=== PATIENT | female | born 1990 | race Caucasian/White ===

== ENCOUNTER 2016-07-24 19:26 | Emergency (ER) | payer MEDICAID ==
[2016-07-24 19:34] VITALS: BP 138/70
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
== END 2016-07-24 19:52 | disposition home or self-care (01) ==
LOC: FB.ED 19:26
DX: S93.602A Unspecified sprain of left foot, initial encounter (principal); F17.210 Nicotine dependence, cigarettes, uncomplicated; W19.XXXA Unspecified fall, initial encounter; Y92.009 Unspecified place in unspecified non-institutional (private) residence as the place of occurrence of the external cause
CPT/HCPCS: 99283

== ENCOUNTER 2016-12-22 14:06 | Emergency (ER) | payer MEDICAID ==
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
[2016-12-22 14:24] VITALS: BP 133/73
== END 2016-12-22 14:25 | disposition home or self-care (01) ==
LOC: FB.ED 14:06
DX: O99.89 Other specified diseases and conditions complicating pregnancy, childbirth and the puerperium (principal); R10.30 Lower abdominal pain, unspecified; O99.331 Smoking (tobacco) complicating pregnancy, first trimester; F17.210 Nicotine dependence, cigarettes, uncomplicated; Z79.899 Other long term (current) drug therapy; Z3A.11 11 weeks gestation of pregnancy
CPT/HCPCS: 99283

== ENCOUNTER 2017-06-15 02:05 | Inpatient (IN) | payer MEDICAID ==
[2017-06-15 02:46] VITALS: BP 146/89
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
--- NOTE | 2017-06-15 14:36 | DISCH ---
DISCHARGE DATE: 06/15/2017 REASON FOR ADMISSION: 1. Latent labor in a multi . 2. labor. 3. Unknown group B status. 4. Prior history of . 5. History of . CONSULTATIONS: None. BRIEF HISTORY: A 27-year-old female, G6, P5, at 36 and 6 days, presented with regular contractions. She was about 4 cm dilated and expressed interest for a vaginal delivery. She had a in 2009. Options of delivery were discussed and patient elected for transfer to [facility], which was done by ambulance for delivery. I spent more than 35 minutes in the transfer of this patient. /[id number] LAURA/ELVIRA
== END 2017-06-15 08:10 | DRG 778 ==
LOC: FB.OBCHECK 02:05 → FB.OB 02:08 → FB.OBCHECK 04:15
PROVIDERS: ADMIT Family Medicine; ATTEND Family Medicine
DX: O60.03 Preterm labor without delivery, third trimester (principal); O34.211 Maternal care for low transverse scar from previous cesarean delivery; Z3A.36 36 weeks gestation of pregnancy; O99.343 Other mental disorders complicating pregnancy, third trimester; F32.9 Major depressive disorder, single episode, unspecified; F41.9 Anxiety disorder, unspecified

== ENCOUNTER 2017-06-20 18:02 | Emergency (ER) | payer MEDICAID ==
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
[2017-06-20 21:48] VITALS: BP 129/71
== END 2017-06-20 20:56 | disposition home or self-care (01) ==
LOC: FB.ED 18:02
DX: O9A.213 Injury, poisoning and certain other consequences of external causes complicating pregnancy, third trimester (principal); S40.021A Contusion of right upper arm, initial encounter; S80.01XA Contusion of right knee, initial encounter; S30.1XXA Contusion of abdominal wall, initial encounter; O99.333 Smoking (tobacco) complicating pregnancy, third trimester; O99.343 Other mental disorders complicating pregnancy, third trimester; F41.9 Anxiety disorder, unspecified; F32.9 Major depressive disorder, single episode, unspecified; F17.210 Nicotine dependence, cigarettes, uncomplicated; Z79.899 Other long term (current) drug therapy; W00.9XXA Unspecified fall due to ice and snow, initial encounter; Y93.01 Activity, walking, marching and hiking; Y92.512 Supermarket, store or market as the place of occurrence of the external cause
CPT/HCPCS: 81001; 82962; 87086; 99283

== ENCOUNTER 2018-05-05 18:11 | Emergency (ER) | payer MEDICAID ==
[2018-05-05] MEDS ORDERED: Amoxicillin 500 MG Cap PO ONE (18:12)
[2018-05-05] MEDS ORDERED: Acetaminophen/HYDROcodone 325-5 MG Tab PO ONE (18:12)
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
[2018-05-06 01:56] VITALS: BP 135/83
== END 2018-05-05 19:15 | disposition home or self-care (01) ==
LOC: FB.ED 18:11
DX: K03.81 Cracked tooth (principal); F41.9 Anxiety disorder, unspecified; F32.9 Major depressive disorder, single episode, unspecified; Z79.899 Other long term (current) drug therapy; F17.210 Nicotine dependence, cigarettes, uncomplicated
CPT/HCPCS: 99282; A9270-GY